=== PATIENT | male | born 1960 | race Caucasian/White ===

== ENCOUNTER 2023-08-15 18:29 | Inpatient (IN) | payer BC, MEDICARE, OTHER ==
[~2023-08-15] VITALS: Ht 190.5 cm; Wt 101.2 kg
[2023-08-15] MEDS ORDERED: IPRATROPIUM NEB FS 0.5 MG/2.5 ML AMPUL.NEB NEB ONE (19:00)
[2023-08-15] MEDS ORDERED: ALBUTEROL FS 2.5 MG/3 ML VIAL.NEB CONTNEB ONE ×2 (19:00→20:30)
[2023-08-15 19:12] VITALS: O2SAT 97
[2023-08-15] MEDS: methylPREDNISolone SOD SUCC 125 MG/2ML VIAL IV ONE ×2 (19:12→19:40)
[2023-08-15] MEDS ORDERED: ALBUTEROL FS 2.5 MG/3 ML VIAL.NEB ONE ×2 (19:17→20:17)
[2023-08-15] MEDS ORDERED: IPRATROPIUM NEB FS 0.5 MG/2.5 ML AMPUL.NEB ONE (19:17)
[2023-08-15] MEDS ORDERED: methylPREDNISolone SOD SUCC 125 MG/2ML VIAL ONE (19:36)
[2023-08-15 20:03] LABS: BASOPHILS % (AUTO) 0.1 % (0.0-2.0); HEMATOCRIT 47 % (39-51); HEMOGLOBIN 15.8 g/dL (13.5-17.5); LYMPHOCYTES % (AUTO) 5.6 % (20.0-44.0); MEAN CORPUSCULAR HEMOGLOBIN 29 PG (26.0-33.0); MEAN CORPUSCULAR HGB CONC 34 g/dl (31.0-36.0); MEAN CORPUSCULAR VOLUME 85 fL (80-96); MONOCYTES # (AUTO) 1.5 K/uL (0.1-1.30); NEUTROPHILS % (AUTO) 86.3 % (43.0-81.0); PLATELET COUNT (AUTO) 223 K/uL (150-450); RED CELL DISTRIBUTION WIDTH 14.7 % (11.5-15.0); WHITE BLOOD COUNT (AUTO) 18.5 K/uL (4.3-11.0)
[2023-08-15 20:12] VITALS: O2SAT 99
[2023-08-15 20:18] LABS: ALANINE AMINOTRANSFERASE 37 U/L (12-78); ALKALINE PHOSPHATASE 59 U/L (46-116); ASPARTATE AMINOTRANSFERASE 52 U/L (15-37); BILIRUBIN,DIRECT 0.6 mg/dL (0.0-0.2); CALCIUM, SERUM 9.5 mg/dL (8.5-10.1); CARBON DIOXIDE 27 mmol/L (21-32); CHLORIDE 98 mmol/L (98-107); CREATININE 1.3 mg/dL (0.6-1.3); GLUCOSE 132 mg/dL (74-106); LIPASE 23 U/L (16-77); POTASSIUM 3.2 mmol/L (3.5-5.1); SODIUM SERUM 135 mmol/L (136-145); TOTAL PROTEIN, SERUM 8.9 g/dL (6.4-8.2); UREA NITROGEN, BLOOD 24 mg/dL (7-18)
[2023-08-15 20:26] VITALS: O2SAT 95
[2023-08-15] MEDS ORDERED: ASPIRIN 325 MG TABLET PO ONE (20:30)
[2023-08-15] MEDS ORDERED: Magnesium 1GM/D5W 100ML PREMIX 200 ML IV ONE (20:30)
[2023-08-15 20:36] VITALS: O2SAT 99
[2023-08-15] MEDS ORDERED: PIPERACI/TAZO 3.375GM/D5W 50ML PB IV ONE (20:49)
[2023-08-15] MEDS ORDERED: Magnesium 1GM/D5W 100ML PREMIX 100 ML IV ONE (20:49)
[2023-08-15] MEDS ORDERED: DILTIAZEM HCL 25 MG IV ONE (20:54)
[2023-08-15] MEDS ORDERED: IPRATROPIUM NEB FS 0.5 MG/2.5 ML AMPUL.NEB NEB PRN (21:00)
[2023-08-15] MEDS ORDERED: MAGNESIUM HYDROXIDE 30 ML UDC PO PRN (21:00)
[2023-08-15] MEDS ORDERED: ACETAMINOPHEN 325 MG TABLET PO PRN (21:00)
[2023-08-15] MEDS ORDERED: methylPREDNISolone SOD SUCC 40 MG/ML VIAL IV SCH (21:00)
[2023-08-15] MEDS ORDERED: PIPERACILLIN /TAZOBACTAM 3.375 G in IV D5W 50 ML IV ONE (21:00)
[2023-08-15] MEDS ORDERED: AZITHROMYCIN 500 MG in IV D5W 250 ML IV ONE (21:00)
[2023-08-15] MEDS ORDERED: Z GUARD REMEDY 4 OZ OINT TP PRN (21:00)
[2023-08-15] MEDS ORDERED: MAG HYDROX/AL HYDROX/SIMETH 30 ML UDC PO PRN (21:00)
[2023-08-15] MEDS ORDERED: ALBUTEROL FS 2.5 MG/3 ML VIAL.NEB NEB PRN (21:00)
[2023-08-15] MEDS ORDERED: ENOXAPARIN SODIUM 40 MG/0.4 ML DISP.SYRIN SQ SCH (21:00)
[2023-08-15] MEDS ORDERED: ONDANSETRON HCL/PF 4 MG/2 ML VIAL IVP PRN (21:00)
[2023-08-15] MEDS ORDERED: DILTIAZEM HCL 50 MG IV IV ONE (21:00)
[2023-08-15] MEDS ORDERED: VANCOMYCIN 1 GM in IV D5W 250 ML IV ONE (21:00)
[2023-08-15] MEDS ORDERED: HYDROCODONE/APAP 5/325MG TABLET PO PRN (21:00)
[2023-08-15] MEDS ORDERED: LORAZEPAM INJ 2 MG/ML VIAL IV ONE (21:00)
[2023-08-15] MEDS ORDERED: AMIODARONE 150 MG/3 ML VIAL IV ONE ×2 (21:17→21:19)
[2023-08-15] MEDS ORDERED: AMIODARONE 150 MG in IV D5W 100 ML IV ONE (21:30)
[2023-08-15] MEDS ORDERED: VANCOMYCIN 1 GM /D5W 250 ML PB IV ONE (21:49)
[2023-08-15] MEDS: AMIODARONE 450 MG in IV D5W 241 ML IV PRN (22:00)
[2023-08-15] MEDS ORDERED: AZITHROMYCIN 500 MG VIAL ONE (22:20)
[2023-08-15] MEDS: IV NS 0.9% 1,000 ML IV PRN ×2 (23:11→23:17)
[2023-08-15] MEDS: ENOXAPARIN SODIUM 100 MG/ML DISP.SYRIN SQ SCH (23:12)
[2023-08-15] MEDS: MORPHINE SULFATE INJ 2 MG/ML DISP.SYRIN IV PRN (23:13)
[2023-08-16] VITALS (36 sets, daily range): BP systolic 104–136; BP diastolic 77–112; TEMP 97.6–98.5; O2SAT 91–100
[2023-08-16] MEDS ORDERED: CEFEPIME 1 GM VIAL ONE (00:04)
[2023-08-16] MEDS: CEFEPIME 1 GM in IV D5W 50 ML IV SCH ×3 (00:48→21:13)
[2023-08-16] MEDS ORDERED: LORAZEPAM INJ 2 MG/ML VIAL IV ONE (01:30)
[2023-08-16 04:48] LABS: BASOPHILS % (AUTO) 0.2 % (0.0-2.0); EOSINOPHILS # (AUTO) 0.1 K/uL (0.0-0.7); EOSINOPHILS % (AUTO) 0.5 % (0.0-6.0); HEMATOCRIT 41 % (39-51); HEMOGLOBIN 13.9 g/dL (13.5-17.5); LYMPHOCYTES # (AUTO) 0.4 K/uL (0.8-4.8); LYMPHOCYTES % (AUTO) 1.8 % (20.0-44.0); MEAN CORPUSCULAR HEMOGLOBIN 29 PG (26.0-33.0); MEAN CORPUSCULAR HGB CONC 34 g/dl (31.0-36.0); MEAN CORPUSCULAR VOLUME 84 fL (80-96); MONOCYTES # (AUTO) 0.4 K/uL (0.1-1.30); MONOCYTES % (AUTO) 2.3 % (2.0-12.0); NEUTROPHILS # (AUTO) 18.2 K/uL (1.8-8.9); NEUTROPHILS % (AUTO) 95.2 % (43.0-81.0); PLATELET COUNT (AUTO) 208 K/uL (150-450); RED BLOOD CELL COUNT(AUTO) 4.82 MIL/uL (4.5-6.0); RED CELL DISTRIBUTION WIDTH 14.5 % (11.5-15.0); WHITE BLOOD COUNT (AUTO) 19.1 K/uL (4.3-11.0)
[2023-08-16 04:57] LABS: THYROID STIMULATING HORMONE 0.365 uIU/mL (0.358-3.74)
[2023-08-16 05:05] LABS: CALCIUM, SERUM 8.7 mg/dL (8.5-10.1); CREATININE 1.2 mg/dL (0.6-1.3); MAGNESIUM 3.1 mg/dL (1.8-2.4); PHOSPHORUS 1.7 mg/dL (2.5-4.9)
[2023-08-16] MEDS: methylPREDNISolone SOD SUCC 40 MG/ML VIAL IV SCH ×3 (05:50→21:14)
[2023-08-16] MEDS: PANTOPRAZOLE 40 MG TABLET.DR PO SCH (07:48)
[2023-08-16] MEDS: AMIODARONE 450 MG in IV D5W 241 ML IV PRN (08:05)
[2023-08-16] MEDS: VANCOMYCIN 1.25 GM in IV D5W 250 ML IV SCH ×2 (08:24→21:14)
[2023-08-16] MEDS: POTASSIUM CHLORIDE 20 MEQ TAB.PRT.SR PO SCH ×2 (08:25→09:43)
[2023-08-16] MEDS: ASPIRIN 81 MG TAB.CHEW PO SCH (08:25)
[2023-08-16] MEDS: NEUTRA PHOS 1 POWD.PACKET PO SCH ×2 (08:25→16:00)
[2023-08-16] MEDS: ENOXAPARIN SODIUM 100 MG/ML DISP.SYRIN SQ SCH ×2 (08:26→21:15)
[2023-08-16] MEDS ORDERED: ALBUTEROL FS 2.5 MG/3 ML VIAL.NEB NEB PRN (10:00)
[2023-08-16] MEDS ORDERED: FLUT1DIS3 IH (10:08)
[2023-08-16] MEDS ORDERED: FLUT16SP16 (10:08)
[2023-08-16] MEDS ORDERED: OMEP40CA21 PO (10:08)
[2023-08-16] MEDS ORDERED: OLME1TAB22 PO (10:08)
[2023-08-16] MEDS ORDERED: CELE200C PO (10:08)
[2023-08-16] MEDS: ACETAMINOPHEN 325 MG TABLET PO PRN (11:48)
[2023-08-16] MEDS: METOPROLOL TARTRATE 50 MG TABLET PO SCH ×2 (11:49→21:15)
[2023-08-16] MEDS: IPRATROPIUM NEB FS 0.5 MG/2.5 ML AMPUL.NEB NEB SCH ×2 (12:43→20:24)
[2023-08-16] MEDS ORDERED: IV NS 0.9% 250 ML IV ONE ×2 (12:48→16:11)
[2023-08-16] MEDS ORDERED: CT SWABBABLE VALVE TRANS SET 1 EA INFUS.SET MC ONE ×2 (12:48→16:10)
[2023-08-16] MEDS ORDERED: IOHEXOL-350 100 ML VIAL IV ONE ×2 (12:48→16:10)
[2023-08-16 15:17] LABS: URINE SODIUM, RANDOM 7 mmol/l (40-220)
[2023-08-16] MEDS ORDERED: METOPROLOL TARTRATE INJ 5 MG/5 ML AMPUL ONE ×2 (16:31→16:37)
[2023-08-16] MEDS: MORPHINE SULFATE INJ 2 MG/ML DISP.SYRIN IV PRN (18:35)
[2023-08-16] MEDS: AZITHROMYCIN 500 MG in IV D5W 250 ML IV SCH (21:18)
[2023-08-16] MEDS ORDERED: TEMAZEPAM 15 MG CAPSULE PO ONE (23:00)
[2023-08-17] VITALS (15 sets, daily range): BP systolic 106–138; BP diastolic 75–94; TEMP 97.3–98.7; O2SAT 92–99
[2023-08-17] MEDS: IPRATROPIUM NEB FS 0.5 MG/2.5 ML AMPUL.NEB NEB SCH ×4 (02:11→20:40)
[2023-08-17] MEDS: methylPREDNISolone SOD SUCC 40 MG/ML VIAL IV SCH (04:31)
[2023-08-17 05:58] LABS: BASOPHILS % (AUTO) 0.1 % (0.0-2.0); HEMATOCRIT 39 % (39-51); HEMOGLOBIN 13.1 g/dL (13.5-17.5); LYMPHOCYTES # (AUTO) 1.1 K/uL (0.8-4.8); MEAN CORPUSCULAR HEMOGLOBIN 28 PG (26.0-33.0); MEAN CORPUSCULAR HGB CONC 34 g/dl (31.0-36.0); MEAN CORPUSCULAR VOLUME 84 fL (80-96); MONOCYTES # (AUTO) 1.2 K/uL (0.1-1.30); MONOCYTES % (AUTO) 5.5 % (2.0-12.0); NEUTROPHILS # (AUTO) 18.9 K/uL (1.8-8.9); NEUTROPHILS % (AUTO) 89.4 % (43.0-81.0); PLATELET COUNT (AUTO) 254 K/uL (150-450); RED BLOOD CELL COUNT(AUTO) 4.64 MIL/uL (4.5-6.0); RED CELL DISTRIBUTION WIDTH 14.5 % (11.5-15.0); WHITE BLOOD COUNT (AUTO) 21.1 K/uL (4.3-11.0)
[2023-08-17 06:09] LABS: ALBUMIN 2.7 g/dL (3.4-5.0); BILIRUBIN,TOTAL 0.5 mg/dL (0.2-1.0); CALCIUM, SERUM 8.3 mg/dL (8.5-10.1); CREATININE 1.2 mg/dL (0.6-1.3); MAGNESIUM 3.2 mg/dL (1.8-2.4); PHOSPHORUS 2.8 mg/dL (2.5-4.9); POTASSIUM 3.9 mmol/L (3.5-5.1); TOTAL PROTEIN, SERUM 6.8 g/dL (6.4-8.2)
[2023-08-17] MEDS: PANTOPRAZOLE 40 MG TABLET.DR PO SCH (08:07)
[2023-08-17] MEDS: ASPIRIN 81 MG TAB.CHEW PO SCH (08:07)
[2023-08-17] MEDS: METOPROLOL TARTRATE 50 MG TABLET PO SCH ×2 (08:08→22:05)
[2023-08-17] MEDS: ENOXAPARIN SODIUM 100 MG/ML DISP.SYRIN SQ SCH (08:08)
[2023-08-17] MEDS: CEFEPIME 1 GM in IV D5W 50 ML IV SCH ×2 (08:09→20:55)
[2023-08-17] MEDS: VANCOMYCIN 1.25 GM in IV D5W 250 ML IV SCH ×2 (09:10→22:00)
[2023-08-17] MEDS: AMIODARONE HCL 200 MG TABLET PO SCH ×2 (12:26→22:05)
[2023-08-17] MEDS: ACETAMINOPHEN 325 MG TABLET PO PRN ×2 (13:10→15:23)
[2023-08-17] MEDS: MORPHINE SULFATE INJ 2 MG/ML DISP.SYRIN IV PRN (18:28)
[2023-08-17] MEDS: AZITHROMYCIN 500 MG in IV D5W 250 ML IV SCH (23:31)
[2023-08-18] VITALS (11 sets, daily range): BP systolic 121–130; BP diastolic 91–94; TEMP 97.7–98.1; O2SAT 96–99
[2023-08-18] MEDS ORDERED: TEMAZEPAM 15 MG CAPSULE PO PRN (02:00)
[2023-08-18] MEDS: IPRATROPIUM NEB FS 0.5 MG/2.5 ML AMPUL.NEB NEB SCH ×3 (02:32→13:10)
[2023-08-18 07:17] LABS: BASOPHILS % (AUTO) 0.1 % (0.0-2.0); HEMATOCRIT 39 % (39-51); HEMOGLOBIN 13.2 g/dL (13.5-17.5); LYMPHOCYTES # (AUTO) 1.6 K/uL (0.8-4.8); LYMPHOCYTES % (AUTO) 11.1 % (20.0-44.0); MEAN CORPUSCULAR HEMOGLOBIN 29 PG (26.0-33.0); MEAN CORPUSCULAR HGB CONC 34 g/dl (31.0-36.0); MEAN CORPUSCULAR VOLUME 85 fL (80-96); MONOCYTES # (AUTO) 1.6 K/uL (0.1-1.30); NEUTROPHILS # (AUTO) 11.5 K/uL (1.8-8.9); NEUTROPHILS % (AUTO) 77.8 % (43.0-81.0); PLATELET COUNT (AUTO) 249 K/uL (150-450); RED CELL DISTRIBUTION WIDTH 14.5 % (11.5-15.0); WHITE BLOOD COUNT (AUTO) 14.7 K/uL (4.3-11.0)
[2023-08-18 07:43] LABS: CALCIUM, SERUM 7.8 mg/dL (8.5-10.1); CREATININE 1.1 mg/dL (0.6-1.3); MAGNESIUM 3.3 mg/dL (1.8-2.4); POTASSIUM 3.4 mmol/L (3.5-5.1)
[2023-08-18] MEDS: PANTOPRAZOLE 40 MG TABLET.DR PO SCH (07:45)
[2023-08-18] MEDS: METOPROLOL TARTRATE 50 MG TABLET PO SCH (08:57)
[2023-08-18] MEDS: CEFEPIME 1 GM in IV D5W 50 ML IV SCH (08:57)
[2023-08-18] MEDS: ASPIRIN 81 MG TAB.CHEW PO SCH (08:58)
[2023-08-18] MEDS: AMIODARONE HCL 200 MG TABLET PO SCH (08:59)
[2023-08-18] MEDS ORDERED: predniSONE 20 MG TABLET PO SCH (09:00)
[2023-08-18] MEDS ORDERED: ENOXAPARIN SODIUM 40 MG/0.4 ML DISP.SYRIN SQ SCH (09:00)
[2023-08-18 09:07] LABS: *SPE A/G RATIO 0.8 (0.7-1.7); *SPE ALBUMIN 2.7 g/dL (2.9-4.4); *SPE ALPHA-1-GLOBULIN 0.5 g/dL (0.0-0.4); *SPE ALPHA-2-GLOBULIN 0.9 g/dL (0.4-1.0); *SPE GLOBULIN, TOTAL 3.3 g/dL (2.2-3.9); *SPE M-SPIKE Not Observed g/dL (Not Observed); *SPEGAMMA GLOBULIN 0.9 g/dL (0.4-1.8)
[2023-08-18] MEDS: VANCOMYCIN 1.25 GM in IV D5W 250 ML IV SCH (09:41)
[2023-08-18] MEDS ORDERED: POTASSIUM CHLORIDE 20 MEQ TAB.PRT.SR PO SCH (10:00)
[2023-08-18] MEDS ORDERED: ASPI-1169 PO (14:21)
[2023-08-18] MEDS ORDERED: AMOX-427 PO (14:21)
[2023-08-18] MEDS ORDERED: METO50TA16 PO (14:21)
[2023-08-18] MEDS ORDERED: ALBU18HF2 INH (14:21)
[2023-08-18] MEDS ORDERED: AMIO200T7 PO (14:21)
[2023-08-18] MEDS ORDERED: PRED5TAB48 PO (14:21)
== END 2023-08-18 15:45 | disposition home or self-care (01) | DRG 871 ==
LOC: ER 18:33 → MEDSG1 20:40 → TELE-TD 21:07 → ICU 08-16 00:03 → TELE1 08-16 19:13 → TELE-TD 08-16 22:05 → MEDSG1 08-17 13:08
PROVIDERS: ADMIT Nurse Practitioner Acute Care; ATTEND Student in an Organized Health Care Education/Training Program
DX: A41.9 Sepsis, unspecified organism (principal); I21.4 Non-ST elevation (NSTEMI) myocardial infarction; J96.01 Acute respiratory failure with hypoxia; J45.901 Unspecified asthma with (acute) exacerbation; L03.116 Cellulitis of left lower limb; N17.9 Acute kidney failure, unspecified; E22.2 Syndrome of inappropriate secretion of antidiuretic hormone; J98.11 Atelectasis; I48.91 Unspecified atrial fibrillation; E78.5 Hyperlipidemia, unspecified; E83.39 Other disorders of phosphorus metabolism; E83.41 Hypermagnesemia; E86.1 Hypovolemia; E87.6 Hypokalemia; I10 Essential (primary) hypertension; E80.6 Other disorders of bilirubin metabolism; E66.9 Obesity, unspecified; Z68.27 Body mass index [BMI] 27.0-27.9, adult; Z20.822 Contact with and (suspected) exposure to COVID-19; I80.8 Phlebitis and thrombophlebitis of other sites; G89.29 Other chronic pain; N20.0 Calculus of kidney; N28.1 Cyst of kidney, acquired
CPT/HCPCS: 36415; 71045-TC; 71250-TC; 75574; 76700-TC; 80048-TC; 80053-TC; 80061-TC; 80076-TC; 80202-TC; 83690-TC; 83735-TC; 83935-TC; 84100-TC; 84155; 84165; 84300-TC; 84443-TC; 84484-TC; 85025-TC; 93307-TC; 93971-TC; 94799-TC; A4223; G0378; J0282; J0456; J0692; J1650; J2060; J2270; J2543; J2920; J2930; J3370; J3475; J3490; J7030; J7050; J7060; Q9967